=== PATIENT | female | born 1955 | race Caucasian/White ===

== ENCOUNTER 2021-03-17 12:01 | Emergency (ER) | payer MEDICARE | END 2021-03-17 14:03 | disposition home or self-care (01) | LOC: MADERS 12:01 | DX: S63.502A Unspecified sprain of left wrist, initial encounter (principal); S00.33XA Contusion of nose, initial encounter; S80.02XA Contusion of left knee, initial encounter; W17.89XA Other fall from one level to another, initial encounter | CPT/HCPCS: 70450; 72125 ==